=== PATIENT | female | born 1960 | race Caucasian/White ===

== ENCOUNTER 2016-11-18 17:14 | Emergency (ER) | payer BC ==
--- NOTE | 2016-11-18 17:18 | PDOC ---
Rapid Medical Evaluation Time Seen by Provider: 11/18/16 17:17 Medical Evaluation: Allergies Allergy/AdvReac Type Severity Reaction Status Date / Time No Known Drug Allergies Allergy Verified 11/18/16 17:16 11/18/16 17:17 56 year old female with history of seasonal allergies and HLD presenting with chest "heaviness" since 10am. Not relieved with rest. No SOB, but worse pain with deep breathing. No dizziness, no diaphoresis. V/s notable for P 94. -EKG -CXR -Cardiac labs -To Main ED for further evaluation
[2016-11-18 17:19] VITALS: TEMP 98; BMI 30.9
[2016-11-18 17:48] LABS: BASOPHIL 0.6 % (0-2.0); EOSINOPHIL 2.1 % (0-4.5); MCH 25.3 pg (25.7-33.7); MCHC 31.9 g/dl (32.0-36.0); MEAN CELL VOLUME 79.2 fl (80-96); MEAN PLT VOLUME 8.4 fl (7.5-11.1); NEUTROPHILS 61.4 % (42.8-82.8); PLATELET COUNT 201 K/MM3 (134-434); RDW 14.9 % (11.6-15.6); WHITE BLOOD COUNT 8.7 K/mm3 (4.0-10.0)
[2016-11-18 18:00] LABS: INR 1.01 (0.82-1.09); PROTHROMBIN TIME (PATIENT) 11.1 SEC (9.98-11.88)
[2016-11-18 18:23] LABS: ALBUMIN 3.7 g/dl (3.4-5.0); ANION GAP 11 (8-16); CALCIUM 8.7 mg/dL (8.5-10.1); CO2 27 mmol/L (21-32); COCKROFT - GAULT 88.8845; CREATININE 0.9 mg/dL (0.55-1.02); GLUCOSE,RANDOM 142 mg/dL (74-106); SGOT/AST 26 U/L (15-37); SGPT/ALT 53 U/L (12-78); TROPONIN I < 0.02 ng/ml (0.00-0.05)
[2016-11-18 18:24] LABS: ALK PHOS 87 U/L (45-117); BILIRUBIN,TOTAL 0.4 mg/dL (0.2-1.0); TOT PROT 7.4 g/dl (6.4-8.2)
--- NOTE | 2016-11-18 19:54 | PDOC ---
History of Present Illness - General Chief Complaint: Chest Pain Stated Complaint: CHEST HEAVINESS Time Seen by Provider: 11/18/16 17:17 History Source: Patient Exam Limitations: No Limitations - History of Present Illness Initial Comments: 11/18/16 19:45 56yo Female patient w/ PmHx: HLD presents to ED c/o chest pressure. 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 She then reports 10:30am having feelings of indigestion. Patient states she left work and symptoms continued. Rogers like "Chest heaviness." Patient took Alkaseltzer with minimal relief, but became concerned when symptoms radiated to her back. Patient states sitting up helps with symptoms, and lying down worsens symptoms. Burping relieves symptoms but then they return. Patient denies n/v/d, fever, sweating, diff breathing, rash, or any other complaints at this time. PCP: Dr. Vu Presenting Symptoms: Other (See HPI) Timing/Duration: reports: intermittent Severity/Quality: reports: moderate, ingestion, pressure. denies: mild, severe , aching, burning, dull, sharp, stabbing, tearing, tightness, other Location: reports: substernal. denies: central, epigastric, shoulder, back, abdomen, other Chest Pain Radiation: reports: back. denies: no radiation, jaw, arms, neck, shoulders, sternal notch, epigastric, other Activities at Onset: denies: none, exertion, emotional upset, rest, sleep, no specific activity, eating, working, sexual intercourse, other Prior Chest Pain/Cardiac Workup: denies: No prior chest pain, No prior cardiac workup, Non-cardiac, Angina, Cardiac Cath, Cardiolye Scan, Echocardiography, Heart Attack, Pulmonary Embolism, Stress Test, Thallium Scan, Other Modifying Factors: improves with: antacids. worse with: breathing, coughing, defecating, eating, exercise, lying down, morphine, movement, nitroglycerin, oxygen, palpation, rest, other Nitro Today/Relief: No: no nitro taken today, 0.4 mg x 1, 0.4 mg x 2, 0.4 mg x 3 , 0.4 mg x 4, provided by EMS, provided by ED, provided at home, no relief, mild relief, complete relief Aspirin Received prior to arrival (Core Measure): No: no aspirin today, unknown , 81 mg x 1, 81 mg x 2, 81 mg x 3, 81 mg x 4, 325 mg x 1, provided at home, provided by EMS, provided by ED ASA Contraindications (Core Measure): No: Allergy, Other, Active Blding w/i 24 hrs., Plavix, Receiving Warfarin Past History - Travel Traveled outside of the country in the last 30 days: No Close contact w/someone who was outside of country & ill: No - Past Medical History Allergies/Adverse Reactions: Allergies Allergy/AdvReac Type Severity Reaction Status Date / Time No Known Drug Allergies Allergy Verified 11/18/16 17:16 Home Medications: Ambulatory Orders Multivitamin [Multivitamins] 1 each PO DAILY 02/19/12 Atorvastatin Calcium [Lipitor] 10 mg PO DAILY 11/18/16 Ranitidine [Zantac -] 150 mg PO BID #28 tablet 11/18/16 Anemia: No Asthma: No Cancer: No Cardiac Disorders: No CVA: No COPD: No CHF: No Dementia: No Diabetes: No GI Disorders: No Disorders: No HTN: No Hypercholesterolemia: Yes Liver Disease: No Seizures: No Thyroid Disease: No - Surgical History Abdominal Surgery: No Appendectomy: No Cardiac Surgery: No Cholecystectomy: No Lung Surgery: No Neurologic Surgery: No Orthopedic Surgery: Yes (R KNEE ARTHROSCOPY) - Psycho/Social/Smoking Cessation Hx Anxiety: No Suicidal Ideation: No Smoking Status: No Smoking History: Never smoked Have you smoked in the past 12 months: No Number of Cigarettes Smoked Daily: 0 Information on smoking cessation initiated: No Hx Alcohol Use: No Drug/Substance Use Hx: No Substance Use Type: None Hx Substance Use Treatment: No Cardiac Specific PMH - Complaint Specific PMHX Abdominal Aortic Aneurysm: No Angina: No Cardiac Arrhythmia: No Cardiac Stent: No GERD: No Myocardial Infarction: No Pacemaker: No Pulmonary Embolus: No Valvular Heart Disease: No Peripheral Vascular Disease: No Review of Systems - Review of Systems Able to Perform ROS?: Yes Is the patient limited Turkmen proficient: No Constitutional: No: Chills, Fever Respiratory: No: Cough, Shortness of Breath, Wheezing Cardiac (ROS): Yes: Other (Chest Pressure). No: Chest Pain, Lightheadedness, Palpitations, Syncope, Chest Tightness ABD/GI: Yes: Indigestion. No: Constipated, Diarrhea, Nausea, Poor Appetite, Poor Fluid Intake, Rectal Bleeding, Vomiting : No: Burning, Dysuria, Flank Pain, Hematuria, Pain Musculoskeletal: Yes: Back Pain Integumentary: No: Bruising, Erythema, Flushing, Rash, Sweating Neurological: No: Headache, Numbness, Seizure, Tingling, Tremors, Unsteady Gait , Ataxia, Dizziness All Other Systems: Reviewed and Negative *Physical Exam - Vital Signs Last Vital Signs Temp Pulse Resp BP Pulse Ox 98.0 F 78 15 124/74 95 11/18/16 17:17 11/18/16 20:21 11/18/16 20:21 11/18/16 20:21 11/18/16 20:21 - Physical Exam General Appearance: Yes: Nourished, Appropriately Dressed. No: Apparent Distress, Mild Distress, Moderate Distress, Severe Distress Neck: positive: Trachea midline, Supple. negative: Rigid, Decreased range of motion, Stridor, Lymphadenopathy (R), Lymphadenopathy (L) Respiratory/Chest: positive: Lungs Clear, Normal Breath Sounds. negative: Chest Tender, Respiratory Distress, Accessory Muscle Use, Labored Respiration, Rapid RR Cardiovascular: positive: Regular Rhythm, Regular Rate Gastrointestinal/Abdominal: positive: Normal Bowel Sounds, Soft, Protuberent. negative: Tender, Increased Bowel Sounds, Distended, Guarding, Rebound, Tenderness Musculoskeletal: positive: Normal Inspection. negative: CVA Tenderness Extremity: positive: Normal Capillary Refill, Normal Inspection, Normal Range of Motion. negative: Pedal Edema, Swelling, Calf Tenderness, Erythema, Inflammation Integumentary: positive: Normal Color, Dry, Warm. negative: Erythema, Moist, Rash, Swelling Neurologic: positive: family mediator II-XII NML intact, Fully Oriented, Alert, Normal Mood/ Affect, Normal Response, Motor Strength 5/5 Heart Score/ECG Review - History History: Slightly suspicious - Electrocardiogram EKG: Normal - Age Age: 45-65 - Risk Factors Risk Factors Heart Score: Yes Hx Hypercholesterolemia Based on the list above the patient has:: 1-2 risk factors - Troponin Troponin: </= normal limit - Score Heart Score - Total: 2 - ECG Impressions Normal ECG: Yes Non-specific ST Elevation: No Ischemic Changes: No Bradycardia: No Torsades latasha Pointes: No WPW: No ED Treatment Course - LABORATORY CBC & Chemistry Diagram: 11/18/16 17:00 11/18/16 17:00 - ADDITIONAL ORDERS Additional order review: Laboratory Results 11/18/16 11/18/16 11/18/16 17:00 17:00 17:00 INR 1.01 Sodium 141 Potassium 3.8 Chloride 103 Carbon Dioxide 27 Anion Gap 11 BUN 18 Creatinine 0.9 Creat Clearance w eGFR > 60 Random Glucose 142 H Calcium 8.7 Total Bilirubin 0.4 AST 26 ALT 53 Alkaline Phosphatase 87 Creatine Kinase 96 Troponin I < 0.02 Total Protein 7.4 Albumin 3.7 11/18/16 17:00 RBC 4.99 MCV 79.2 L MCHC 31.9 L RDW 14.9 MPV 8.4 Neutrophils % 61.4 D Lymphocytes % 29.0 D Monocytes % 6.9 Eosinophils % 2.1 Basophils % 0.6 - Medications Given in the ED: ED Medications Discontinued Medications Generic Name Dose Route Start Last Admin Trade Name Freq PRN Reason Stop Dose Admin Al Hydroxide/Mg Hydroxide 30 ml 11/18/16 19:57 11/18/16 20:10 Mylanta Oral Suspension - PO 11/18/16 19:58 30 ml ONCE ONE Administration *DC/Admit/Observation/Transfer Diagnosis at time of Disposition: GERD (gastroesophageal reflux disease) Qualifiers: Esophagitis presence: without esophagitis Qualified Code(s): K21.9 - Gastro- esophageal reflux disease without esophagitis - Discharge Dispostion Disposition: HOME Condition at time of disposition: Improved Admit: No - Prescriptions Prescriptions: Ranitidine [Zantac -] 150 mg PO BID #28 tablet - Referrals Referrals: Shannon De Leon MD [Primary Care Provider] - - Patient Instructions Printed Discharge Instructions: DI for Gastroesophageal Reflux Disease (GERD) Additional Instructions: FOLLOW UP WITH YOUR DOCTOR THIS WEEK DISCUSSED. USE OTC ZANTAC DISCUSSED. IF SYMPTOMS WORSEN, RETURN FOR FURTHER EVALUATION. AVOID SPICY FOODS, ALCOHOL, CHOCOLATE, AND CAFFEINE AT THIS TIME. Print Language: ROMANSH
[2016-11-18] MEDS ORDERED: MAG HYDROX/AL HYDROX/SIMETH 30 ML UNIT-DOSE CUP PO ONE (19:57)
--- NOTE | 2016-11-18 20:09 | PDOC ---
*Physical Exam - Vital Signs Last Vital Signs Temp Pulse Resp BP Pulse Ox 98.0 F 94 H 18 136/60 100 11/18/16 17:17 11/18/16 17:17 11/18/16 17:17 11/18/16 17:17 11/18/16 17:17 ED Treatment Course - LABORATORY CBC & Chemistry Diagram: 11/18/16 17:00 11/18/16 17:00 - ADDITIONAL ORDERS Additional order review: Laboratory Results 11/18/16 11/18/16 11/18/16 17:00 17:00 17:00 INR 1.01 Sodium 141 Potassium 3.8 Chloride 103 Carbon Dioxide 27 Anion Gap 11 BUN 18 Creatinine 0.9 Creat Clearance w eGFR > 60 Random Glucose 142 H Calcium 8.7 Total Bilirubin 0.4 AST 26 ALT 53 Alkaline Phosphatase 87 Creatine Kinase 96 Troponin I < 0.02 Total Protein 7.4 Albumin 3.7 11/18/16 17:00 RBC 4.99 MCV 79.2 L MCHC 31.9 L RDW 14.9 MPV 8.4 Neutrophils % 61.4 D Lymphocytes % 29.0 D Monocytes % 6.9 Eosinophils % 2.1 Basophils % 0.6 Medical Decision Making - Medical Decision Making 11/18/16 20:09 agree with care from JAKUB Stark *DC/Admit/Observation/Transfer Diagnosis at time of Disposition: GERD (gastroesophageal reflux disease) Qualifiers: Esophagitis presence: without esophagitis Qualified Code(s): K21.9 - Gastro- esophageal reflux disease without esophagitis - Referrals Referrals: Shannon De Leon MD [Primary Care Provider] - - Patient Instructions - Post Discharge Activity
[2016-11-18] MEDS ORDERED: MAG HYDROX/AL HYDROX/SIMETH 30 ML UNIT-DOSE CUP ONE (20:11)
[2016-11-18 20:24] VITALS: BP 124/74; PULSE 78
--- NOTE | 2016-11-19 11:49 | EKG ---
Test Reason : Blood Pressure : / mmHG Vent. Rate : 093 BPM Atrial Rate : 093 BPM P-R Int : 156 ms QRS Dur : 084 ms QT Int : 370 ms P-R-T Axes : 045 040 024 degrees QTc Int : 460 ms NORMAL SINUS RHYTHM NORMAL ECG NO PREVIOUS ECGS AVAILABLE Confirmed by LUKASZ BARRIENTOS MD ([id number]) on 11/19/2016 11:49:31 AM Referred By: ALEJANDRA Confirmed By:LUKASZ BARRIENTOS MD
== END 2016-11-18 20:57 | disposition home or self-care (01) ==
LOC: JER 17:14
DX: K21.9 Gastro-esophageal reflux disease without esophagitis (principal); E78.00 Pure hypercholesterolemia, unspecified
CPT/HCPCS: 36415; 71020-TC; 80053; 82550; 84484; 85025; 85610; 93005; 93010; 99282-25